=== PATIENT | male | born 1945 | race Caucasian/White ===

== ENCOUNTER 2020-09-23 11:46 | Day surgery (SDC) | payer MEDICARE ==
[2020-09-21 13:41] LABS: BASOPHILS % (AUTO) 1 % (0-1); EOSINOPHILS % (AUTO) 2 % (1-7); LYMPHOCYTES % (AUTO) 24 % (22-44); MEAN CORPUSCULAR HEMOGLOBIN 29.7 pg (27.5-34.5); MEAN CORPUSCULAR HGB CONC 33.5 g/dL (33.2-36.2); MEAN PLATELET VOLUME 8.3 fL (7.4-10.4); MONOCYTES % (AUTO) 8 % (2-9); NEUTROPHILS % (AUTO) 65 % (42-75); PLATELET COUNT 284 x10^3/uL (130-400); RED BLOOD COUNT 5.05 x10^6/uL (4.38-5.82); RED CELL DISTRIBUTION WIDTH 13.2 % (9.4-14.8)
[2020-09-21 13:42] LABS: MD NO
[2020-09-21 13:52] LABS: INTERNATIONAL NORMALIZED RATIO 1.13 (0.93-1.1)
[2020-09-21 13:53] LABS: ALANINE AMINOTRANSFERASE 30 U/L (12-78); ALBUMIN 3.9 g/dL (3.4-5.0); ANION GAP 4 mmol/L (5-15); CALCIUM 9.2 mg/dL (8.5-10.1); CHLORIDE 109 mmol/L (98-107)
[2020-09-21 13:56] LABS: ALKALINE PHOSPHATASE 85 U/L (45-117); BILIRUBIN,TOTAL 1.3 mg/dL (0.2-1.0); CREATININE 1.04 mg/dL (0.7-1.3); TOTAL PROTEIN 7.9 g/dL (6.4-8.2)
[~2020-09-23] VITALS: Ht 182.9 cm; Wt 101.2 kg
[~2020-09-23 11:46] MED LIST: DILT360C26 PO; FLUT9.9S NAS; METO50TA82 PO; TAMS-11 PO; vitamin D3 PO; zinc PO
[2020-09-23 12:11] VITALS: BP 118/76
[2020-09-23] MEDS ORDERED: CHLORHEXIDINE 15 ML UDC ONE (12:14)
[2020-09-23] MEDS ORDERED: CHLORHEXIDINE 15 ML UDC MM ONE (12:30)
[2020-09-23] MEDS ORDERED: LACTATED RINGERS 1,000 ML IV SCH (12:30)
[2020-09-23] MEDS ORDERED: MIDAZOLAM 1 MG/ML, 2ML ONE (13:05)
[2020-09-23] MEDS ORDERED: PROPOFOL 10 MG/ML, 20ML ONE (13:06)
[2020-09-23] MEDS ORDERED: CEFAZOLIN 1,000 MG ONE ×2 (13:06)
[2020-09-23] MEDS ORDERED: ONDANSETRON 2MG/ML, 2ML ONE (13:06)
[2020-09-23] MEDS ORDERED: DEXAMETHASONE 4 MG/ML, 1ML ONE ×2 (13:06)
[2020-09-23] MEDS ORDERED: FENTANYL PF 250 MCG/5ML ONE (13:06)
[2020-09-23] MEDS ORDERED: BUPIVACAINE/PF 0.5% ONE (13:37)
[2020-09-23] MEDS ORDERED: EPINEPHRINE 1 MG/ML, 1ML ONE (13:37)
[2020-09-23] MEDS ORDERED: KETOROLAC 30 MG/1 ML ONE (13:55)
[2020-09-23] MEDS ORDERED: PROPOFOL 50 ML ONE (14:04)
[2020-09-23] MEDS ORDERED: PROMETHAZINE 25 MG/ML, 1ML IVPush PRN (14:30)
[2020-09-23] MEDS ORDERED: FENTANYL PF 100 MCG/2ML IV PRN (14:30)
[2020-09-23] MEDS ORDERED: hydrALAzine 20 MG/ML, 1ML IV PRN (14:30)
[2020-09-23] MEDS ORDERED: ONDANSETRON 2MG/ML, 2ML IVPush PRN (14:30)
[2020-09-23] MEDS ORDERED: HYDROmorphone 1 MG/ML, 1ML INJ IVPush PRN (14:30)
[2020-09-23] MEDS ORDERED: DIAZEPAM 5 MG/ML, 2ML IVPush PRN (14:30)
[2020-09-23] MEDS ORDERED: DIPHENHYDRAMINE 50 MG/ML, 1ML IVPush PRN (14:30)
[2020-09-23] MEDS ORDERED: OXYcodone 5 MG/5 ML ORAL.SOL UDC PO PRN (14:30)
[2020-09-23] MEDS ORDERED: LABETALOL 5MG/ML, 20ML IV PRN (14:30)
[2020-09-23] MEDS ORDERED: METOPROLOL 1 MG/ML, 5ML IV PRN (14:30)
[2020-09-23] MEDS ORDERED: MEPERIDINE/PF 25MG/0.5ML IVPush PRN (14:30)
[2020-09-23] MEDS ORDERED: ACETAMINOPHEN 325 MG TABLET PO PRN (14:30)
[2020-09-23] MEDS ORDERED: FENTANYL PF 100 MCG/2ML ONE (15:27)
[2020-09-23] MEDS ORDERED: HYDR-3240 PO (16:54)
== END 2020-09-23 17:25 | disposition home or self-care (01) ==
LOC: OUT 11:46
PROVIDERS: ATTEND Surgery
DX: R59.1 Generalized enlarged lymph nodes (principal); C77.3 Secondary and unspecified malignant neoplasm of axilla and upper limb lymph nodes; I10 Essential (primary) hypertension; I48.91 Unspecified atrial fibrillation; Z79.01 Long term (current) use of anticoagulants; Z79.899 Other long term (current) drug therapy; Z87.891 Personal history of nicotine dependence; Z91.048 Other nonmedicinal substance allergy status; Z96.643 Presence of artificial hip joint, bilateral; Z98.52 Vasectomy status; Z82.3 Family history of stroke; Z80.9 Family history of malignant neoplasm, unspecified
CPT/HCPCS: 36415; 38740; 71046; 80053; 85025; 85610; 85730; 87635; 88307; 93005; C1729; J0171; J0690; J1100; J1885; J2250; J2405; J2704; J3010; J7120; 88305